=== PATIENT | female | born 1980 | race Hispanic/Latino ===

== ENCOUNTER 2017-08-23 11:34 | Emergency (ER) | payer MEDICAID ==
[~2017-08-23 11:34] MED LIST: INSU500V SQ; NPH,100V SQ; PREN1TAB89 PO
[2017-08-23] MEDS ORDERED: DEXAMETHASONE SOD PHOSPHATE 10MG/ML 1ML VIAL ONE (11:52)
[2017-08-23] MEDS ORDERED: IPRATROPIUM/ALBUTEROL SULFATE 3 ML SOLUTION IH ONE (11:58)
== END 2017-08-23 12:25 | disposition home or self-care (01) ==
LOC: EDH 11:34
DX: J20.9 Acute bronchitis, unspecified (principal); E11.9 Type 2 diabetes mellitus without complications; Z72.0 Tobacco use
CPT/HCPCS: 71046; 94640; 96372; 99284; J1100

== ENCOUNTER 2018-08-28 18:08 | Emergency (ER) | payer MEDICAID ==
[2018-08-28] MEDS ORDERED: ASPIRIN 325 MG TABLET ONE (18:20)
[2018-08-28 18:53] LABS: EOSINOPHILS % (AUTO) 0.6 % (0.0-8.0); HEMATOCRIT 43.2 % (36-48); MEAN CORPUSCULAR HEMOGLOBIN 31.4 pg (27.0-33.0); MEAN CORPUSCULAR HGB CONC 35.1 g/dL (32.0-36.0); MEAN CORPUSCULAR VOLUME 89.6 fL (79-99); MONOCYTES % (AUTO) 5.8 % (3.0-13.0); NEUTROPHILS % (AUTO) 51.6 % (40.0-77.0); NUCLEATED RED BLOOD CELLS 0.1 % (0.0-0.19); PLATELET COUNT (AUTO) 248 K/uL (130-400); RED BLOOD CELL COUNT(AUTO) 4.82 MIL/uL (4.00-5.50); RED CELL DISTRIBUTION WIDTH 13.5 % (11.0-15.5); WHITE BLOOD COUNT (AUTO) 9.6 K/uL (4.8-10.8)
[2018-08-28 18:59] LABS: CREATININE 0.8 mg/dL (0.5-1.5); POTASSIUM 3.8 mmol/L (3.5-5.1)
[2018-08-28 19:03] LABS: ALBUMIN 2.7 g/dL (3.5-5.0); BILIRUBIN,TOTAL 0.3 mg/dL (0.2-1.0); TOTAL PROTEIN, SERUM 6.8 g/dL (6.0-8.3)
[2018-08-28 19:24] LABS: APPEARANCE,URINE Clear (CLEAR); BILIRUBIN,URINE Negative (NEGATIVE); COLOR,URINE Yellow (YELLOW); GLUCOSE, URINE (UA) >=1000 mg/dL (NEGATIVE); KETONES,URINE Negative (NEGATIVE); LEUKOCYTE ESTERASE ,URINE Negative (NEGATIVE); NITRATE,URINE Negative (NEGATIVE); OCCULT BLOOD,URINE Negative (NEGATIVE); PROTEIN,URINE 300 mg/dL (NEGATIVE); UROBILINOGEN,URINE 0.2 mg/dL (0.2-1.0)
[2018-08-28 19:32] LABS: AMPHET/METH SCREEN,URINE NEGATIVE (NEGATIVE); BARBITURATE SCREEN, URINE NEGATIVE (NEGATIVE); BENZODIAZEPINES SCREEN,URINE NEGATIVE (NEGATIVE); CANNABINOID SCREEN,URINE POSITIVE (NEGATIVE); COCAINE SCREEN,URINE POSITIVE (NEGATIVE); OPIATE SCREEN,URINE NEGATIVE (NEGATIVE); PHENCYCLIDINE SCREEN,URINE NEGATIVE (NEGATIVE)
[2018-08-28 19:41] LABS: BACTERIA,URINE None Seen /HPF (None Seen); RBC,URINE 0-1 /HPF (0-1); SQUAMOUS EPITHELIAL CELL,UR 0-2 /HPF (0-2); WBC,URINE 0-1 /HPF (0-1)
[2018-08-28] MEDS ORDERED: KETOROLAC TROMETHAMINE 15MG/ML ONE (20:27)
[2018-08-28] MEDS ORDERED: SODIUM CHLORIDE 0.9% 1000ML 1,000 ML IV ONE (20:28)
[2018-08-28] MEDS ORDERED: LORAZEPAM 2 MG/ML 1 ML VIAL ONE (20:28)
== END 2018-08-28 22:09 | disposition home or self-care (01) ==
LOC: EDH 18:08
DX: E11.65 Type 2 diabetes mellitus with hyperglycemia (principal); R07.89 Other chest pain; F19.90 Other psychoactive substance use, unspecified, uncomplicated; Z90.89 Acquired absence of other organs; Z72.0 Tobacco use
CPT/HCPCS: 36415; 71045; 80053; 80305; 81001; 84484 ×2; 85025; 93005 ×2; 96361; 96374; 96375; 99285; J1885; J2060; J7030

== ENCOUNTER 2018-11-21 01:20 | Emergency (ER) | payer MEDICAID ==
[2018-11-21 03:09] LABS: CREATININE 0.8 mg/dL (0.5-1.5); POTASSIUM 3.9 mmol/L (3.5-5.1)
[2018-11-21] MEDS ORDERED: KETOROLAC TROMETHAMINE 30MG/ML ONE (03:09)
[2018-11-21] MEDS ORDERED: LIDOCAINE HCL 2% JELLY 5 ML ONE (03:09)
[2018-11-21] MEDS ORDERED: CLINDAMYCIN 900 MG/D5% WATER 50 ML IV ONE (03:09)
[2018-11-21 03:14] LABS: ALBUMIN 3.2 g/dL (3.5-5.0); BILIRUBIN,TOTAL 0.2 mg/dL (0.2-1.0); TOTAL PROTEIN, SERUM 7.5 g/dL (6.0-8.3)
[2018-11-21 03:17] LABS: BASOPHILS % (AUTO) 0.9 % (0.0-5.0); EOSINOPHILS % (AUTO) 0.8 % (0.0-8.0); HEMATOCRIT 46.5 % (36-48); LYMPHOCYTES % (AUTO) 40.2 % (21.0-51.0); MEAN CORPUSCULAR HEMOGLOBIN 31.3 pg (27.0-33.0); MEAN CORPUSCULAR HGB CONC 34.6 g/dL (32.0-36.0); MEAN CORPUSCULAR VOLUME 90.3 fL (79-99); MONOCYTES % (AUTO) 4.3 % (3.0-13.0); NEUTROPHILS % (AUTO) 53.8 % (40.0-77.0); NUCLEATED RED BLOOD CELLS 0.1 % (0.0-0.19); PLATELET COUNT (AUTO) 261 K/uL (130-400); RED BLOOD CELL COUNT(AUTO) 5.15 MIL/uL (4.00-5.50); RED CELL DISTRIBUTION WIDTH 13.1 % (11.0-15.5); WHITE BLOOD COUNT (AUTO) 10.8 K/uL (4.8-10.8)
== END 2018-11-21 04:42 | disposition home or self-care (01) ==
LOC: EDH 01:20
DX: K04.7 Periapical abscess without sinus (principal); E11.65 Type 2 diabetes mellitus with hyperglycemia; Z72.0 Tobacco use
CPT/HCPCS: 36415; 80053; 85025; 96361; 96365; 96374; 99284; J1885; J3490

== ENCOUNTER 2019-10-07 13:06 | Emergency (ER) | payer MEDICAID ==
[2019-10-07] MEDS ORDERED: ASPIRIN 325 MG TABLET ONE (13:34)
== END 2019-10-07 15:15 | disposition home or self-care (01) ==
LOC: EDH 13:06
DX: M94.0 Chondrocostal junction syndrome [Tietze] (principal); E11.9 Type 2 diabetes mellitus without complications; Z90.49 Acquired absence of other specified parts of digestive tract; Z90.710 Acquired absence of both cervix and uterus; Z72.0 Tobacco use

== ENCOUNTER 2020-09-06 22:43 | Emergency (ER) | payer MEDICAID ==
[~2020-09-06] VITALS: Ht 165.1 cm; Wt 93.0 kg
[2020-09-06 23:16] VITALS: BP 144/87
[2020-09-07] MEDS ORDERED: TETANUS/DIPHTHERIA TOXOID [ADULT] 0.5 ML VIAL IM SCH
[2020-09-07] MEDS ORDERED: PHARMACY COMMUNICATION MISC SCH
[2020-09-07] MEDS ORDERED: CLINDAMYCIN 900 MG/D5% WATER 50 ML IV SCH
[2020-09-07] MEDS ORDERED: KETOROLAC 30MG VIAL (30MG/ML) IVP SCH
[2020-09-07 00:10] LABS: BASOPHILS % (AUTO) 0.3 % (0.0-5.0); EOSINOPHILS % (AUTO) 0.3 % (0.0-8.0); HEMATOCRIT 48.2 % (36-48); LYMPHOCYTES % (AUTO) 31.4 % (21.0-51.0); MEAN CORPUSCULAR HEMOGLOBIN 30.4 pg (27.0-33.0); MEAN CORPUSCULAR HGB CONC 34.2 g/dL (32.0-36.0); MEAN CORPUSCULAR VOLUME 88.8 fL (79-99); MONOCYTES % (AUTO) 5.3 % (3.0-13.0); NEUTROPHILS % (AUTO) 62.3 % (40.0-77.0); PLATELET COUNT (AUTO) 264 K/uL (130-400); RED BLOOD CELL COUNT(AUTO) 5.43 MIL/uL (4.00-5.50); RED CELL DISTRIBUTION WIDTH 12.6 % (11.0-15.5); WHITE BLOOD COUNT (AUTO) 13.6 K/uL (4.8-10.8)
[2020-09-07 00:17] LABS: CREATININE 0.9 mg/dL (0.5-1.5)
[2020-09-07 00:22] LABS: ALBUMIN 2.7 g/dL (3.5-5.0); BILIRUBIN,TOTAL 0.3 mg/dL (0.2-1.0); TOTAL PROTEIN, SERUM 7.6 g/dL (6.0-8.3)
[2020-09-07] MEDS ORDERED: INSULIN HUMULIN R 100 UNIT/ML 3ML IV SCH (00:45)
[2020-09-07] MEDS ORDERED: SODIUM CHLORIDE 0.9% 1000ML 1,000 ML IV SCH ×2 (00:45)
[2020-09-07] MEDS ORDERED: CLIN300C10 PO (00:49)
== END 2020-09-07 02:45 | disposition home or self-care (01) ==
LOC: EDH 22:43
DX: L03.113 Cellulitis of right upper limb (principal); E11.65 Type 2 diabetes mellitus with hyperglycemia; E86.0 Dehydration; Z79.4 Long term (current) use of insulin; Z79.1 Long term (current) use of non-steroidal anti-inflammatories (NSAID); Z72.0 Tobacco use
CPT/HCPCS: 36415; 80053; 85025; 90471; 90714; 96361 ×2; 96374; 96375; 99284; J1815; J1885; J7030 ×2

== ENCOUNTER 2020-11-08 03:35 | Observation (INO) | payer MEDICAID ==
[~2020-11-08] VITALS: Ht 165.1 cm; Wt 98.9 kg
[2020-11-08] VITALS (9 sets, daily range): BP systolic 130–166; BP diastolic 78–107
[~2020-11-08 03:35] MED LIST changes: +CLIN300C10 PO
[2020-11-08 04:12] LABS: APPEARANCE,URINE Clear (CLEAR); BILIRUBIN,URINE Negative (NEGATIVE); COLOR,URINE Yellow (YELLOW); GLUCOSE, URINE (UA) >=1000 mg/dL (NEGATIVE); KETONES,URINE Negative (NEGATIVE); LEUKOCYTE ESTERASE ,URINE Negative (NEGATIVE); NITRATE,URINE Negative (NEGATIVE); OCCULT BLOOD,URINE Negative (NEGATIVE); PH,URINE 6.5 (5.0-8.0); PROTEIN,URINE 300 mg/dL (NEGATIVE); UROBILINOGEN,URINE 0.2 mg/dL (0.2-1.0)
[2020-11-08 04:24] LABS: BASOPHILS % (AUTO) 0.4 % (0.0-5.0); EOSINOPHILS % (AUTO) 0.7 % (0.0-8.0); HEMATOCRIT 44.3 % (36-48); LYMPHOCYTES % (AUTO) 36.9 % (21.0-51.0); MEAN CORPUSCULAR HEMOGLOBIN 30.3 pg (27.0-33.0); MEAN CORPUSCULAR HGB CONC 34.3 g/dL (32.0-36.0); MEAN CORPUSCULAR VOLUME 88.2 fL (79-99); MONOCYTES % (AUTO) 6.3 % (3.0-13.0); NEUTROPHILS % (AUTO) 55.3 % (40.0-77.0); PLATELET COUNT (AUTO) 236 K/uL (130-400); RED BLOOD CELL COUNT(AUTO) 5.02 MIL/uL (4.00-5.50); RED CELL DISTRIBUTION WIDTH 12.8 % (11.0-15.5); WHITE BLOOD COUNT (AUTO) 13.1 K/uL (4.8-10.8)
[2020-11-08 04:29] LABS: ALBUMIN 2.6 g/dL (3.5-5.0); BILIRUBIN,TOTAL 0.2 mg/dL (0.2-1.0); CREATININE 0.9 mg/dL (0.5-1.5); TOTAL PROTEIN, SERUM 6.9 g/dL (6.0-8.3)
[2020-11-08 04:41] LABS: BACTERIA,URINE None Seen /HPF (None Seen); RBC,URINE 0-1 /HPF (0-1); SQUAMOUS EPITHELIAL CELL,UR Few /HPF (0-2); WBC,URINE None Seen /HPF (0-1)
[2020-11-08 04:43] LABS: B-TYPE NATRIURETIC PEPTIDE 17 pg/mL (0-100)
[2020-11-08 04:45] LABS: INR 0.91 (0.85-1.15)
[2020-11-08 04:46] LABS: PARTIAL THROMBOPLASTIN TIME 24.2 SEC (26.3-35.5)
[2020-11-08] MEDS ORDERED: ASPIRIN 325MG EC TAB PO ONE (06:00)
[2020-11-08] MEDS ORDERED: KETOROLAC 30MG VIAL (30MG/ML) ONE (06:25)
[2020-11-08] MEDS ORDERED: KETOROLAC 30MG VIAL (30MG/ML) IV ONE (06:30)
[2020-11-08] MEDS ORDERED: GABA600T10 PO (06:55)
[2020-11-08] MEDS ORDERED: METH-662 PO (06:55)
[2020-11-08] MEDS ORDERED: ORPHENADRINE CITRATE 30 MG/ML ML IV ONE (07:00)
[2020-11-08] MEDS ORDERED: GABAPENTIN 300 MG CAPSULE PO SCH (07:00)
[2020-11-08 14:04] LABS: PROTEIN,URINE RANDOM 179.2 mg/dL (0-11.9)
[2020-11-08 14:07] LABS: AMPHET/METH SCREEN,URINE NEGATIVE (NEGATIVE); BARBITURATE SCREEN, URINE NEGATIVE (NEGATIVE); BENZODIAZEPINES SCREEN,URINE NEGATIVE (NEGATIVE); CANNABINOID SCREEN,URINE POSITIVE (NEGATIVE); COCAINE SCREEN,URINE POSITIVE (NEGATIVE); OPIATE SCREEN,URINE NEGATIVE (NEGATIVE); PHENCYCLIDINE SCREEN,URINE NEGATIVE (NEGATIVE)
[2020-11-08 14:26] LABS: HEMOGLOBIN A1C 13.1 % (4.0-6.0)
[2020-11-08 16:11] LABS: CREATINE KINASE, TOTAL 54 U/L (21-232); MYOGLOBIN 77 ng/mL (10-92); TROPONIN I < 0.04 ng/mL (0.00-0.06)
[2020-11-08] MEDS ORDERED: ACETAMINOPHEN 325 MG TAB PO PRN ×2 (17:30)
[2020-11-08] MEDS ORDERED: LACTULOSE 20 GM/30 ML UDCUP PO PRN (17:30)
[2020-11-08] MEDS ORDERED: ONDANSETRON 4MG INJ IV PRN (17:30)
[2020-11-08] MEDS ORDERED: 0.9%NACL 1000ML 1,000 ML IV SCH (17:30)
[2020-11-08] MEDS ORDERED: NITROGLYCERIN 0.4 MG SL TAB SL PRN (17:30)
[2020-11-08] MEDS ORDERED: METOPROLOL TARTRATE 25 MG TAB PO SCH (21:00)
[2020-11-08] MEDS ORDERED: INSULIN LISPRO 100 UNIT/ML 3ML SQ SCH (21:00)
[2020-11-08] MEDS ORDERED: INSULIN GLARGINE 100 UNITS/ML 10 ML VIAL SQ SCH (21:00)
[2020-11-08] MEDS ORDERED: FAMOTIDINE 20MG VIAL IV SCH (21:00)
[2020-11-09] MEDS ORDERED: INSULIN LISPRO 100 UNIT/ML 3ML SQ SCH (07:30)
[2020-11-09] MEDS ORDERED: ENOXAPARIN SODIUM 40 MG/0.4 ML SYRINGE SQ SCH (09:00)
== END 2020-11-08 20:16 | disposition left against medical advice (07) ==
LOC: EDH 03:35 → EDHIP 03:36
PROVIDERS: ADMIT Internal Medicine; ATTEND Internal Medicine
DX: M54.12 Radiculopathy, cervical region (principal); M62.830 Muscle spasm of back; R07.89 Other chest pain; F41.9 Anxiety disorder, unspecified; E11.65 Type 2 diabetes mellitus with hyperglycemia; E66.9 Obesity, unspecified; F17.210 Nicotine dependence, cigarettes, uncomplicated; Z79.4 Long term (current) use of insulin; Z90.710 Acquired absence of both cervix and uterus; Z90.49 Acquired absence of other specified parts of digestive tract; Z98.891 History of uterine scar from previous surgery; Z68.36 Body mass index [BMI] 36.0-36.9, adult; Z79.899 Other long term (current) drug therapy
CPT/HCPCS: 36415; 71045; 72125; 74018; 80053; 80305; 81001; 82550 ×2; 82570; 83036; 83874; 83880; 84156; 84484 ×3; 85025; 85378; 85610; 85730; 93005 ×2; 96361; 96374; 96375; 99285; G0378 ×3; J1885; J2360

== ENCOUNTER 2020-12-02 15:17 | Emergency (ER) | payer MEDICAID ==
[~2020-12-02] VITALS: Ht 165.1 cm; Wt 98.9 kg
[~2020-12-02 15:17] MED LIST changes: +AEC81 PO; -CLIN300C10 PO; +FAMO20TA8 PO; +GABA600T10 PO; +INSU100I35 SQ; +METH-662 PO
[2020-12-02 16:00] LABS: APPEARANCE,URINE Cloudy (CLEAR); BILIRUBIN,URINE Negative (NEGATIVE); COLOR,URINE Yellow (YELLOW); GLUCOSE, URINE (UA) >=1000 mg/dL (NEGATIVE); KETONES,URINE Trace mg/dL (NEGATIVE); LEUKOCYTE ESTERASE ,URINE Negative (NEGATIVE); NITRATE,URINE Positive (NEGATIVE); OCCULT BLOOD,URINE Trace (NEGATIVE); PROTEIN,URINE 300 mg/dL (NEGATIVE)
[2020-12-02 16:10] LABS: BACTERIA,URINE Few /HPF (None Seen); SQUAMOUS EPITHELIAL CELL,UR Few /HPF (0-2)
[2020-12-02] MEDS ORDERED: LIDOCAINE HCL-MPF 1% 2ML VIAL ONE (16:19)
[2020-12-02] MEDS ORDERED: CEFTRIAXONE 1G VIAL IM ONE (16:30)
[2020-12-02] MEDS ORDERED: KETOROLAC 30MG VIAL (30MG/ML) IM ONE (16:30)
[2020-12-02 17:02] VITALS: BP 92/66
[2020-12-02] MEDS ORDERED: IBUP-2070 PO (17:19)
[2020-12-02] MEDS ORDERED: CEPH500B PO (17:19)
[2020-12-02 17:52] VITALS: BP 97/55
== END 2020-12-02 17:59 | disposition home or self-care (01) ==
LOC: EDH 15:17
DX: N39.0 Urinary tract infection, site not specified (principal); E11.9 Type 2 diabetes mellitus without complications; I10 Essential (primary) hypertension; E78.00 Pure hypercholesterolemia, unspecified; Z90.49 Acquired absence of other specified parts of digestive tract; Z90.710 Acquired absence of both cervix and uterus
CPT/HCPCS: 81001; 87077; 87088; 87186; 96372 ×2; 99284; J0696; J1885; J3490

== ENCOUNTER 2021-04-10 18:26 | Emergency (ER) | payer MEDICAID ==
[~2021-04-10] VITALS: Ht 165.1 cm; Wt 95.3 kg
[~2021-04-10 18:26] MED LIST changes: +CEPH500B PO; +IBUP-2070 PO
[2021-04-10 20:43] LABS: BASOPHILS % (AUTO) 0.3 % (0.0-5.0); EOSINOPHILS % (AUTO) 0.6 % (0.0-8.0); HEMATOCRIT 46.2 % (36-48); LYMPHOCYTES % (AUTO) 35.3 % (21.0-51.0); MEAN CORPUSCULAR HEMOGLOBIN 29.2 pg (27.0-33.0); MEAN CORPUSCULAR HGB CONC 33.5 g/dL (32.0-36.0); MEAN CORPUSCULAR VOLUME 87.2 fL (79-99); MONOCYTES % (AUTO) 6.7 % (3.0-13.0); NEUTROPHILS % (AUTO) 56.7 % (40.0-77.0); PLATELET COUNT (AUTO) 263 K/uL (130-400); RED CELL DISTRIBUTION WIDTH 13.2 % (11.0-15.5); WHITE BLOOD COUNT (AUTO) 13.6 K/uL (4.8-10.8)
[2021-04-10 20:51] LABS: CARBON DIOXIDE 27 mmol/L (21-32); CHLORIDE 102 mmol/L (101-111); CREATININE 0.9 mg/dL (0.5-1.5); GLOMERULAR FILTR. RATE CALC 74 mL/min (>60); GLUCOSE,RANDOM 192 mg/dL (70-105); POTASSIUM 3.8 mmol/L (3.5-5.1); SODIUM SERUM 135 mmol/L (136-145); UREA NITROGEN, BLOOD 13 mg/dL (7-18)
[2021-04-10 20:56] LABS: ALANINE AMINOTRANSFERASE 27 U/L (12-78); ASPARTATE AMINOTRANSFERASE 13 U/L (10-37); BILIRUBIN,TOTAL 0.2 mg/dL (0.2-1.0); CREATINE KINASE, TOTAL 58 U/L (21-232); TOTAL PROTEIN, SERUM 7.5 g/dL (6.0-8.3)
[2021-04-10 20:57] LABS: LIPASE < 50 U/L (114-286)
[2021-04-10 21:21] LABS: B-TYPE NATRIURETIC PEPTIDE 10 pg/mL (0-100)
[2021-04-10] MEDS ORDERED: MAGNESIUM OXIDE 400 MG TABLET PO SCH (22:00)
[2021-04-10 22:15] VITALS: BP 112/72
== END 2021-04-10 22:36 | disposition home or self-care (01) ==
LOC: EDH 18:26
DX: R07.89 Other chest pain (principal); J06.9 Acute upper respiratory infection, unspecified; E83.42 Hypomagnesemia; E11.65 Type 2 diabetes mellitus with hyperglycemia; Z20.822 Contact with and (suspected) exposure to COVID-19; F17.200 Nicotine dependence, unspecified, uncomplicated; Z79.1 Long term (current) use of non-steroidal anti-inflammatories (NSAID); Z79.4 Long term (current) use of insulin; Z79.82 Long term (current) use of aspirin; Z79.899 Other long term (current) drug therapy; Z90.49 Acquired absence of other specified parts of digestive tract; Z95.5 Presence of coronary angioplasty implant and graft
CPT/HCPCS: 36415; 71045; 80053; 82550; 83690; 83735; 83880; 84484; 85025; 85378; 87635; 87804 ×2; 93005; 99285; C9803

== ENCOUNTER 2022-02-02 23:56 | Emergency (ER) | payer MEDICAID ==
[~2022-02-02] VITALS: Ht 165.1 cm; Wt 90.7 kg
[2022-02-02 23:57] VITALS: BP 113/72
[2022-02-03] MEDS ORDERED: IBUP-1493 PO (02:05)
[2022-02-03] MEDS ORDERED: OSEL75 PO (02:05)
== END 2022-02-03 02:31 | disposition home or self-care (01) ==
LOC: EDH 23:56
DX: J10.1 Influenza due to other identified influenza virus with other respiratory manifestations (principal); Z20.822 Contact with and (suspected) exposure to COVID-19; I25.10 Atherosclerotic heart disease of native coronary artery without angina pectoris; E11.9 Type 2 diabetes mellitus without complications; I25.2 Old myocardial infarction; Z98.890 Other specified postprocedural states; Z79.82 Long term (current) use of aspirin; Z79.899 Other long term (current) drug therapy; Z79.4 Long term (current) use of insulin
CPT/HCPCS: 99283; 87635; 87880; 87804 ×2; C9803

== ENCOUNTER 2022-03-20 01:00 | Emergency (ER) | payer MEDICAID ==
[~2022-03-20] VITALS: Ht 165.1 cm; Wt 91.2 kg
[~2022-03-20 01:00] MED LIST changes: +IBUP-1493 PO; +OSEL75 PO
[2022-03-20 01:39] LABS: BASOPHILS % (AUTO) 0.4 % (0.0-5.0); EOSINOPHILS % (AUTO) 0.9 % (0.0-8.0); HEMATOCRIT 49.4 % (36-48); LYMPHOCYTES % (AUTO) 35.9 % (21.0-51.0); MEAN CORPUSCULAR HEMOGLOBIN 29.9 pg (27.0-33.0); MEAN CORPUSCULAR HGB CONC 33.4 g/dL (32.0-36.0); MEAN CORPUSCULAR VOLUME 89.7 fL (79-99); MONOCYTES % (AUTO) 6.4 % (3.0-13.0); NEUTROPHILS % (AUTO) 56.2 % (40.0-77.0); PLATELET COUNT (AUTO) 280 K/uL (130-400); RED BLOOD CELL COUNT(AUTO) 5.51 MIL/uL (4.00-5.50); RED CELL DISTRIBUTION WIDTH 12.9 % (11.0-15.5); WHITE BLOOD COUNT (AUTO) 11.4 K/uL (4.8-10.8)
[2022-03-20 01:49] LABS: CREATININE 0.9 mg/dL (0.5-1.5); POTASSIUM 3.5 mmol/L (3.5-5.1)
[2022-03-20 01:54] LABS: ALBUMIN 3.6 g/dL (3.5-5.0); MAGNESIUM 1.9 mg/dL (1.80-2.40); TOTAL PROTEIN, SERUM 8.8 g/dL (6.0-8.3)
[2022-03-20 04:00] VITALS: BP 118/78
== END 2022-03-20 04:53 | disposition left against medical advice (07) ==
LOC: EDH 01:00
DX: R07.89 Other chest pain (principal); I25.10 Atherosclerotic heart disease of native coronary artery without angina pectoris; F17.210 Nicotine dependence, cigarettes, uncomplicated; E11.9 Type 2 diabetes mellitus without complications; I51.9 Heart disease, unspecified; E78.00 Pure hypercholesterolemia, unspecified; Z90.49 Acquired absence of other specified parts of digestive tract; Z98.890 Other specified postprocedural states; Z79.899 Other long term (current) drug therapy; Z79.82 Long term (current) use of aspirin
CPT/HCPCS: 36415; 71045; 80053; 83735; 84484; 84703; 85025; 93005

== ENCOUNTER 2022-06-18 06:33 | Emergency (ER) | payer MEDICAID ==
[~2022-06-18] VITALS: Ht 167.6 cm; Wt 93.0 kg
[2022-06-18] MEDS ORDERED: ALBUTEROL 0.042% 1.25MG/3ML IH ONE ×2 (07:00→07:01)
[2022-06-18] MEDS ORDERED: ALBUTEROL 0.083% 2.5 MG/3 ML INH IH ONE (07:00)
[2022-06-18] MEDS ORDERED: IPRATROPIUM 0.5 MG/2.5 ML INH IH ONE ×2 (07:00)
[2022-06-18 07:26] LABS: BASOPHILS % (AUTO) 0.4 % (0.0-5.0); EOSINOPHILS % (AUTO) 1.1 % (0.0-8.0); HEMATOCRIT 42.1 % (36-48); LYMPHOCYTES % (AUTO) 26.9 % (21.0-51.0); MEAN CORPUSCULAR HEMOGLOBIN 30.1 pg (27.0-33.0); MEAN CORPUSCULAR HGB CONC 34.2 g/dL (32.0-36.0); MEAN CORPUSCULAR VOLUME 87.9 fL (79-99); NEUTROPHILS % (AUTO) 65.2 % (40.0-77.0); PLATELET COUNT (AUTO) 274 K/uL (130-400); RED BLOOD CELL COUNT(AUTO) 4.79 MIL/uL (4.00-5.50); RED CELL DISTRIBUTION WIDTH 13.2 % (11.0-15.5); WHITE BLOOD COUNT (AUTO) 14.3 K/uL (4.8-10.8)
[2022-06-18 07:48] LABS: ALBUMIN 3.1 g/dL (3.5-5.0); POTASSIUM 3.5 mmol/L (3.5-5.1)
[2022-06-18 07:51] LABS: TOTAL PROTEIN, SERUM 7.4 g/dL (6.0-8.3)
[2022-06-18] MEDS ORDERED: DOXYCYCLINE HYCLATE 100 MG TABLET PO SCH (08:00)
[2022-06-18] MEDS ORDERED: 0.9%NACL 1000ML 1,000 ML IV ONE ×2 (08:00→08:04)
[2022-06-18] MEDS ORDERED: SOLU-MEDROL 125MG VIAL IVP ONE (08:00)
[2022-06-18] MEDS ORDERED: SOLU-MEDROL 125MG VIAL ONE (08:04)
[2022-06-18] MEDS ORDERED: DOXYCYCLINE HYCLATE 100 MG TABLET PO ONE (08:04)
[2022-06-18 08:05] LABS: APPEARANCE,URINE CLEAR (CLEAR); BILIRUBIN,URINE NEGATIVE (NEGATIVE); COLOR,URINE COLORLESS (YELLOW); GLUCOSE, URINE (UA) >=1000 mg/dL (NEGATIVE); KETONES,URINE NEGATIVE (NEGATIVE); LEUKOCYTE ESTERASE ,URINE NEGATIVE Leu/uL (NEGATIVE); NITRATE,URINE NEGATIVE (NEGATIVE); OCCULT BLOOD,URINE NEGATIVE (NEGATIVE); PROTEIN,URINE NEGATIVE (NEGATIVE); UROBILINOGEN,URINE 0.2 mg/dL (0.2-1.0)
[2022-06-18 08:12] LABS: RBC,URINE 0-1 /HPF (0-1); SQUAMOUS EPITHELIAL CELL,UR RARE /HPF (0-2); WBC,URINE 0-1 /HPF (0-1)
[2022-06-18] MEDS ORDERED: INSULIN HUMULIN R 100 UNIT/ML 3ML SQ ONE (08:30)
[2022-06-18] MEDS ORDERED: INSULIN HUMULIN R 100 UNIT/ML 3ML ONE (08:53)
[2022-06-18] MEDS ORDERED: D-ME118S47 PO (09:35)
[2022-06-18] MEDS ORDERED: DOXY-469 PO (09:35)
[2022-06-18 10:06] VITALS: BP 113/58
== END 2022-06-18 10:08 | disposition home or self-care (01) ==
LOC: EDH 06:33
DX: J40 Bronchitis, not specified as acute or chronic (principal); E11.65 Type 2 diabetes mellitus with hyperglycemia; E86.0 Dehydration; I10 Essential (primary) hypertension; F17.200 Nicotine dependence, unspecified, uncomplicated; I25.10 Atherosclerotic heart disease of native coronary artery without angina pectoris; Z79.1 Long term (current) use of non-steroidal anti-inflammatories (NSAID); Z79.4 Long term (current) use of insulin; Z79.52 Long term (current) use of systemic steroids; Z79.82 Long term (current) use of aspirin; Z90.49 Acquired absence of other specified parts of digestive tract; Z95.5 Presence of coronary angioplasty implant and graft; Z20.822 Contact with and (suspected) exposure to COVID-19
CPT/HCPCS: 99285; 96374; 71045; 96361; 87635; 80053; 85025; 87804 ×2; 82948; 81001; 36415; 96372; 93005; 94640; J1815; C9803; J7030; J2930

== ENCOUNTER 2022-07-29 05:48 | Observation (INO) | payer MEDICAID ==
[~2022-07-29] VITALS: Ht 167.6 cm; Wt 92.4 kg
[~2022-07-29 05:48] MED LIST changes: +D-ME118S47 PO; +DOXY-469 PO
[2022-07-29] MEDS ORDERED: NITROGLYCERIN 0.4 MG SL TAB SL PRN (06:00)
[2022-07-29] MEDS ORDERED: ASPIRIN 325MG TAB PO ONE (06:00)
[2022-07-29] MEDS ORDERED: ASPIRIN 325MG TAB ONE (06:03)
[2022-07-29] MEDS ORDERED: NITROGLYCERIN 0.4 MG SL TAB SL ONE (06:03)
[2022-07-29 06:23] LABS: BASOPHILS % (AUTO) 0.3 % (0.0-5.0); EOSINOPHILS % (AUTO) 0.7 % (0.0-8.0); HEMATOCRIT 45.3 % (36-48); LYMPHOCYTES % (AUTO) 40.4 % (21.0-51.0); MEAN CORPUSCULAR VOLUME 88.3 fL (79-99); MONOCYTES % (AUTO) 5.6 % (3.0-13.0); NEUTROPHILS % (AUTO) 52.8 % (40.0-77.0); PLATELET COUNT (AUTO) 258 K/uL (130-400); RED BLOOD CELL COUNT(AUTO) 5.13 MIL/uL (4.00-5.50); WHITE BLOOD COUNT (AUTO) 13.2 K/uL (4.8-10.8)
[2022-07-29 06:33] LABS: ALBUMIN 3.1 g/dL (3.5-5.0); MAGNESIUM 1.7 mg/dL (1.80-2.40); POTASSIUM 3.7 mmol/L (3.5-5.1); TOTAL PROTEIN, SERUM 7.5 g/dL (6.0-8.3)
[2022-07-29 07:20] LABS: AMPHET/METH SCREEN,URINE NEGATIVE (NEGATIVE); BARBITURATE SCREEN, URINE NEGATIVE (NEGATIVE); BENZODIAZEPINES SCREEN,URINE NEGATIVE (NEGATIVE); CANNABINOID SCREEN,URINE NEGATIVE (NEGATIVE); COCAINE SCREEN,URINE NEGATIVE (NEGATIVE); OPIATE SCREEN,URINE NEGATIVE (NEGATIVE); PHENCYCLIDINE SCREEN,URINE NEGATIVE (NEGATIVE)
[2022-07-29 07:30] LABS: APPEARANCE,URINE CLEAR (CLEAR); BILIRUBIN,URINE NEGATIVE (NEGATIVE); COLOR,URINE COLORLESS (YELLOW); GLUCOSE, URINE (UA) >=1000 mg/dL (NEGATIVE); KETONES,URINE NEGATIVE (NEGATIVE); LEUKOCYTE ESTERASE ,URINE NEGATIVE Leu/uL (NEGATIVE); NITRATE,URINE NEGATIVE (NEGATIVE); OCCULT BLOOD,URINE NEGATIVE (NEGATIVE); PROTEIN,URINE 20 mg/dL (NEGATIVE); UROBILINOGEN,URINE 0.2 mg/dL (0.2-1.0)
[2022-07-29 07:31] LABS: SQUAMOUS EPITHELIAL CELL,UR RARE /HPF (0-2)
[2022-07-29] MEDS ORDERED: KETOROLAC 15MG/ML VIAL (15MG/ML) ONE (07:55)
[2022-07-29] MEDS: KETOROLAC 15MG/ML VIAL (15MG/ML) IV SCH ×2 (08:06→09:35)
[2022-07-29] MEDS: MAGNESIUM 2GM PREMIX 50ML 50 ML IV SCH (08:41)
[2022-07-29] MEDS ORDERED: CEFTRIAXONE 1G VIAL IV SCH (11:00)
[2022-07-29] MEDS ORDERED: DIPHENHYDRAMINE HCL 25 MG CAPSULE PO PRN (11:00)
[2022-07-29] MEDS ORDERED: ONDANSETRON 4MG INJ IV PRN (11:00)
[2022-07-29] MEDS ORDERED: ACETAMINOPHEN 325 MG TAB PO PRN ×2 (11:00)
[2022-07-29] MEDS ORDERED: MAGNESIUM 2GM PREMIX 50ML 50 ML IV PRN (11:00)
[2022-07-29] MEDS ORDERED: DiphenhydrAMINE HCL 50 MG/ML VIAL IV PRN (11:00)
[2022-07-29] MEDS: INSULIN HUMULIN R 100 UNIT/ML 3ML SQ SCH ×5 (11:30→21:42)
[2022-07-29 11:34] LABS: INR 0.93 (0.85-1.15); PROTHROMBIN TIME 9.7 SEC (9.6-11.6)
[2022-07-29 11:35] LABS: PARTIAL THROMBOPLASTIN TIME 25.8 SEC (26.3-35.5)
[2022-07-29] MEDS ORDERED: HEPARIN 5,000 UNIT VIAL ONE (11:53)
[2022-07-29] MEDS: HEPARIN 5,000 UNIT VIAL SQ SCH ×2 (11:55→21:41)
[2022-07-29 11:56] LABS: HEMOGLOBIN A1C 13.7 % (4.0-6.0)
[2022-07-29] MEDS ORDERED: PRAS10TA9 PO (14:38)
[2022-07-29] MEDS ORDERED: EMPA25TA PO (14:38)
[2022-07-29] MEDS ORDERED: LISI5TAB21 PO (14:38)
[2022-07-29] MEDS ORDERED: METO25TA6 PO (14:39)
[2022-07-29] MEDS ORDERED: ATOR-2 PO (14:40)
[2022-07-29] MEDS ORDERED: INSU200I SQ (14:42)
[2022-07-29 14:43] VITALS: BP 115/70
[2022-07-29] MEDS ORDERED: INSU3INS3 SQ (14:43)
[2022-07-29 16:22] VITALS: BP 114/69
[2022-07-29 20:10] VITALS: BP 103/51
[2022-07-29] MEDS: FAMOTIDINE 20MG TAB PO SCH (20:38)
[2022-07-29 23:39] VITALS: BP 115/75
[2022-07-30 03:57] VITALS: BP 94/60
[2022-07-30 04:40] LABS: BASOPHILS % (AUTO) 0.3 % (0.0-5.0); EOSINOPHILS % (AUTO) 0.7 % (0.0-8.0); HEMATOCRIT 41.3 % (36-48); LYMPHOCYTES % (AUTO) 42.7 % (21.0-51.0); MEAN CORPUSCULAR HEMOGLOBIN 30.1 pg (27.0-33.0); MEAN CORPUSCULAR HGB CONC 33.2 g/dL (32.0-36.0); MEAN CORPUSCULAR VOLUME 90.8 fL (79-99); MONOCYTES % (AUTO) 5.7 % (3.0-13.0); NEUTROPHILS % (AUTO) 50.2 % (40.0-77.0); PLATELET COUNT (AUTO) 226 K/uL (130-400); RED BLOOD CELL COUNT(AUTO) 4.55 MIL/uL (4.00-5.50); RED CELL DISTRIBUTION WIDTH 13.1 % (11.0-15.5); WHITE BLOOD COUNT (AUTO) 12.3 K/uL (4.8-10.8)
[2022-07-30 04:48] LABS: CREATININE 0.8 mg/dL (0.5-1.5); MAGNESIUM 1.7 mg/dL (1.80-2.40); POTASSIUM 4.2 mmol/L (3.5-5.1)
[2022-07-30] MEDS: MAGNESIUM 2GM PREMIX 50ML 50 ML IV SCH (06:08)
[2022-07-30] MEDS: INSULIN HUMULIN R 100 UNIT/ML 3ML SQ SCH ×2 (06:39→06:40)
[2022-07-30 08:11] VITALS: BP 109/66
[2022-07-30] MEDS: FAMOTIDINE 20MG TAB PO SCH (08:21)
[2022-07-30] MEDS: HEPARIN 5,000 UNIT VIAL SQ SCH (08:21)
[2022-07-30] MEDS ORDERED: AMOX1TAB16 PO (08:54)
[2022-07-30] MEDS ORDERED: PRASUGREL HCL 10 MG TABLET PO SCH (09:00)
[2022-07-30] MEDS ORDERED: ASPIRIN 81 MG EC TAB PO SCH (09:00)
[2022-07-30] MEDS ORDERED: ATORVASTATIN 40 MG TABLET PO SCH (21:00)
== END 2022-07-30 10:29 | disposition home or self-care (01) ==
LOC: EDH 05:48 → EDHIP 05:49 → INTOOBSV 05:49 → 2DH 14:05
PROVIDERS: ADMIT Hospitalist; ATTEND Hospitalist
DX: I25.110 Atherosclerotic heart disease of native coronary artery with unstable angina pectoris (principal); E11.9 Type 2 diabetes mellitus without complications; I10 Essential (primary) hypertension; E78.5 Hyperlipidemia, unspecified; E66.9 Obesity, unspecified; F41.9 Anxiety disorder, unspecified; I25.2 Old myocardial infarction; K59.00 Constipation, unspecified; F14.90 Cocaine use, unspecified, uncomplicated; F17.210 Nicotine dependence, cigarettes, uncomplicated; G47.00 Insomnia, unspecified; Z68.32 Body mass index [BMI] 32.0-32.9, adult; Z87.440 Personal history of urinary (tract) infections; Z91.199 Patient's noncompliance with other medical treatment and regimen due to unspecified reason; Z79.4 Long term (current) use of insulin; Z95.1 Presence of aortocoronary bypass graft; Z95.5 Presence of coronary angioplasty implant and graft; Z79.82 Long term (current) use of aspirin; Z79.899 Other long term (current) drug therapy; Z98.890 Other specified postprocedural states
CPT/HCPCS: 99285; 96365; 71045; 96375; 96366 ×2; 83036; 83735 ×2; 84484 ×3; 80053; 83880; 80305; 85025 ×2; 85378; 85610; 85730; 87077; 87088; 87186; 82948 ×3; 36415 ×2; 93005 ×2; 81001; 96372 ×2; 80048; J1815 ×3; J3475 ×2; J0696; J1644 ×3; J1885; G0378

== ENCOUNTER 2022-10-23 03:21 | Emergency (ER) | payer MEDICAID ==
[~2022-10-23] VITALS: Ht 167.6 cm; Wt 89.4 kg
[~2022-10-23 03:21] MED LIST changes: +AMOX1TAB16 PO; +ATOR-2 PO; -CEPH500B PO; +CYCL5TAB PO; -D-ME118S47 PO; -DOXY-469 PO; +EMPA25TA PO; -GABA600T10 PO; -IBUP-1493 PO; -IBUP-2070 PO; -INSU100I35 SQ; +INSU200I SQ; +INSU3INS3 SQ; -INSU500V SQ; +LISI5TAB21 PO; -METH-662 PO; +METO25TA6 PO; -NPH,100V SQ; -OSEL75 PO; +PRAS10TA9 PO; -PREN1TAB89 PO
[2022-10-23] MEDS ORDERED: PANTOPRAZOLE 40 MG/VIAL ONE (03:55)
[2022-10-23 04:00] LABS: BASOPHILS % (AUTO) 0.3 % (0.0-5.0); EOSINOPHILS % (AUTO) 0.3 % (0.0-8.0); HEMATOCRIT 44.8 % (36-48); LYMPHOCYTES % (AUTO) 28.1 % (21.0-51.0); MEAN CORPUSCULAR HEMOGLOBIN 29.9 pg (27.0-33.0); MEAN CORPUSCULAR HGB CONC 33.7 g/dL (32.0-36.0); MEAN CORPUSCULAR VOLUME 88.7 fL (79-99); MONOCYTES % (AUTO) 6.7 % (3.0-13.0); NEUTROPHILS % (AUTO) 64.3 % (40.0-77.0); PLATELET COUNT (AUTO) 240 K/uL (130-400); RED BLOOD CELL COUNT(AUTO) 5.05 MIL/uL (4.00-5.50); RED CELL DISTRIBUTION WIDTH 12.9 % (11.0-15.5); WHITE BLOOD COUNT (AUTO) 14.6 K/uL (4.8-10.8)
[2022-10-23] MEDS ORDERED: PANTOPRAZOLE 40 MG/VIAL IVP ONE (04:00)
[2022-10-23] MEDS ORDERED: ONDANSETRON 4MG INJ IVP ONE (04:00)
[2022-10-23] MEDS ORDERED: 0.9%NACL 1000ML 1,000 ML IV ONE (04:00)
[2022-10-23 04:05] LABS: APPEARANCE,URINE CLEAR (CLEAR); BILIRUBIN,URINE NEGATIVE (NEGATIVE); COLOR,URINE COLORLESS (YELLOW); GLUCOSE, URINE (UA) >=1000 mg/dL (NEGATIVE); KETONES,URINE NEGATIVE (NEGATIVE); LEUKOCYTE ESTERASE ,URINE NEGATIVE Leu/uL (NEGATIVE); NITRATE,URINE NEGATIVE (NEGATIVE); OCCULT BLOOD,URINE NEGATIVE (NEGATIVE); PH,URINE 5.5 (5.0-8.0); PROTEIN,URINE 30 mg/dL (NEGATIVE); UROBILINOGEN,URINE 0.2 mg/dL (0.2-1.0)
[2022-10-23 04:06] LABS: RBC,URINE 0-1 /HPF (0-1); WBC,URINE 0-1 /HPF (0-1)
[2022-10-23 04:10] LABS: CARBON DIOXIDE 23 mmol/L (21-32); CHLORIDE 98 mmol/L (101-111); CREATININE 0.9 mg/dL (0.5-1.5); GLOMERULAR FILTR. RATE CALC 83 mL/min (>90); GLUCOSE,RANDOM 339 mg/dL (70-105); POTASSIUM 3.7 mmol/L (3.5-5.1); SODIUM SERUM 134 mmol/L (136-145); UREA NITROGEN, BLOOD 12 mg/dL (7-18)
[2022-10-23 04:14] LABS: ALANINE AMINOTRANSFERASE 34 U/L (12-78); ALBUMIN 3.1 g/dL (3.5-5.0); ASPARTATE AMINOTRANSFERASE 42 U/L (10-37)
[2022-10-23 04:16] LABS: LIPASE < 50 U/L (114-286)
[2022-10-23] MEDS ORDERED: PANT40TA PO (04:58)
[2022-10-23] MEDS ORDERED: ONDA-104 PO (04:58)
[2022-10-23 05:04] VITALS: BP 126/76; PULSE 89; RESP 18
== END 2022-10-23 05:20 | disposition home or self-care (01) ==
LOC: EDH 03:21
DX: R11.2 Nausea with vomiting, unspecified (principal); R10.9 Unspecified abdominal pain; E11.9 Type 2 diabetes mellitus without complications; F17.200 Nicotine dependence, unspecified, uncomplicated; Z79.02 Long term (current) use of antithrombotics/antiplatelets; Z79.4 Long term (current) use of insulin; Z79.82 Long term (current) use of aspirin; Z79.84 Long term (current) use of oral hypoglycemic drugs; Z79.899 Other long term (current) drug therapy; Z90.49 Acquired absence of other specified parts of digestive tract; Z95.5 Presence of coronary angioplasty implant and graft; Z90.710 Acquired absence of both cervix and uterus
CPT/HCPCS: 99284; 96374; 96361; 96375; 80053; 83690; 85025; 81001; 81025; 36415; J7030; J2405; S0164; C9113

== ENCOUNTER 2024-03-05 04:47 | Emergency (ER) | payer BC ==
[~2024-03-05] VITALS: Ht 167.6 cm; Wt 88.5 kg
[~2024-03-05 04:47] MED LIST changes: -CYCL5TAB PO; +CYCL5TAB3 PO; +ONDA-104 PO; +PANT40TA PO
[2024-03-05 04:48] VITALS: TEMP 97.9
--- NOTE | 2024-03-05 04:48 | NUR ---
UA CUP PROVIDED
--- NOTE | 2024-03-05 04:52 | NUR ---
REPORTS WAS SEEN AT [facility] FOR SAME DX WITH CONSTIPATION
[2024-03-05] MEDS: MAG/ALUM/SIMETH 30 ML UDCUP PO ONE (04:59)
[2024-03-05] MEDS: DICYCLOMINE HCL 10 MG/5 ML ML PO ONE (04:59)
[2024-03-05] MEDS: LACTATED RINGERS 1000ML 1,000 ML IV ONE (05:00)
[2024-03-05] MEDS: PANTOPrazole 40 MG/VIAL IVP ONE (05:00)
[2024-03-05 05:15] LABS: BASOPHILS # (AUTO) 0.04 K/uL (0.00-0.20); BASOPHILS % (AUTO) 0.3 % (0.0-5.0); EOSINOPHILS # (AUTO) 0.09 K/uL (0.00-0.70); EOSINOPHILS % (AUTO) 0.7 % (0.0-8.0); HEMATOCRIT 42.7 % (36-48); IMMATURE GRANULOCYTE ABSOLUTE 0.03 K/uL (0-1); LYMPHOCYTES # (AUTO) 4.9 K/uL (1.0-4.8); LYMPHOCYTES % (AUTO) 39.6 % (21.0-51.0); MEAN CORPUSCULAR HEMOGLOBIN 30.5 pg (27.0-33.0); MEAN CORPUSCULAR HGB CONC 34.2 g/dL (32.0-36.0); MEAN CORPUSCULAR VOLUME 89.3 fL (79-99); MONOCYTES # (AUTO) 0.8 K/uL (0.1-1.0); MONOCYTES % (AUTO) 6.3 % (3.0-13.0); NEUTROPHILS # (AUTO) 6.5 K/uL (1.8-7.7); NEUTROPHILS % (AUTO) 52.9 % (40.0-77.0); PLATELET COUNT (AUTO) 233 K/uL (130-400); RED BLOOD CELL COUNT(AUTO) 4.78 MIL/uL (4.00-5.50); RED CELL DISTRIBUTION WIDTH 12.7 % (11.0-15.5); WHITE BLOOD COUNT (AUTO) 12.3 K/uL (4.8-10.8)
--- NOTE | 2024-03-05 05:22 | ERN ---
General Chief Complaint: Abdominal Pain Stated Complaint: LEFT UPPER QUADRANT PAIN Time Seen by MD: 04:48 Source: patient History of Present Illness Initial Comments PATIENT IS A 43-YEAR-OLD FEMALE COMING IN TO BE EVALUATED FOR ABDOMINAL PAIN. PATIENT STATES THAT THE PAIN IS LOCALIZED TO THE LEFT UPPER QUADRANT AREA. PATIENT WAS RECENTLY SEEN AT ANOTHER HOSPITAL AND DIAGNOSED WITH CONSTIPATION STATES SHE HAS NOT FELT ANY BETTER SO DECIDED COME IN TO BE EVALUATED Allergies: Coded Allergies: No Known Allergies (Unverified Allergy, Unknown, 06/04/16) Uncoded Allergies: UNKNOWN ANTIBIOTIC (Allergy, Unknown, 01/08/24) Home Meds Active Scripts Ondansetron HCl (Ondansetron HCl) 4 Mg Tablet, 4 MG PO TIDP PRN for VOMITING, #20 TAB Prov:BRE PÉREZ MD 10/23/22 Pantoprazole Sodium (Protonix) 40 Mg Tablet.dr, 40 MG PO DAILY, #40 TAB Prov:BRE PÉREZ MD 10/23/22 Cyclobenzaprine HCl (Cyclobenzaprine HCl) 5 Mg Tablet, 5 MG PO Q6HPRN PRN for spasm pain for 7 Days, #21 TAB Prov:ENA SANCHEZ NP 10/20/22 Amoxicillin/Potassium Clav (Amox Tr-K Clv 875-125 mg Tab) 1 Each Tablet, 1 EACH PO BID, #10 TAB 0 Refills Prov:REKHA BEAN NEUROPSYCHOLOGIST 07/30/22 Famotidine (Famotidine) 20 Mg Tablet, 20 MG PO DAILY for 30 Days, #30 TAB 0 Refills Prov:MARCOS SNIDER MD 11/24/20 Reported Medications Insulin Glargine,Hum.rec.anlog (Lantus Solostar) 100 Unit/1 Ml Insuln.pen, 50 UNIT SQ HS, SYRINGE 07/29/22 Insulin Lispro (Humalog Kwikpen) 200 Unit/1 Ml Insuln.pen, 30 UNIT SQ TIDAC, SYRINGE 07/29/22 Atorvastatin Calcium (Atorvastatin Calcium) 80 Mg Tablet, 80 MG PO DAILY, TAB 07/29/22 Metoprolol Tartrate (Metoprolol Tartrate) 25 Mg Tablet, 25 MG PO BID, TAB 07/29/22 Prasugrel HCl (Prasugrel HCl) 10 Mg Tablet, 10 MG PO DAILY, TAB 07/29/22 Lisinopril (Lisinopril) 5 Mg Tablet, 5 MG PO DAILY, TAB 07/29/22 Empagliflozin (Jardiance) 25 Mg Tablet, 25 MG PO DAILY, TAB 07/29/22 Aspirin (ASPIRIN 81 MG ECTAB) 81 Mg Ectab, 81 MG PO DAILY, TAB.EC 11/21/20 Past Medical History Past Medical History: Diabetes-Type II, High Cholesterol, Hypertension, OR Medical History Other: HEART STENT Past Surgical History: Hysterectomy, Cholecystectomy, Surgical History Other: HEART STENT; D & C Family History Family History: Negative Social History Social History: Smokers, Lives with family Female( History) History: Not Applicable ROS Dictation CONSTITUTIONAL: NO CHILLS, NO FEVER, NO WEAKNESS, NO DIAPHORESIS, NO MALAISE. HEAD/FACE: NO SIGNS OF TRAUMA. EENT: NO EYE PAIN, NO BLURRED VISION, NO TEARING, NO DOUBLE VISION, NO EAR PAIN, NO EAR DISCHARGE, NO NOSE PAIN, NO NASAL CONGESTION, NO THROAT PAIN, NO THROAT SWELLING, NO MOUTH PAIN. RESPIRATORY: NO COUGH, NO ORTHOPNEA, NO SOB, NO STRIDOR, NO WHEEZING. CARDIOVASCULAR: NO CHEST PAIN, NO EDEMA, NO PALPITATIONS, NO SYNCOPE. GASTROINTESTINAL/ABDOMINAL: ABDOMINAL PAIN, NO CONSTIPATION, NO DIARRHEA, NO NAUSEA, NO VOMITING. GENITOURINARY: NO ABNORMAL DISCHARGE, NO DYSURIA, NO FREQUENT URINATION, NO HEMATURIA. NO COMPLAINTS OF PAIN IN THE GENITALS. MUSCULOSKELETAL: NO BACK PAIN, NO GOUT, NO JOINT PAIN, NO JOINT SWELLING, NO MUSCLE PAIN, NO MUSCLE STIFFNESS, NO NECK PAIN. INTEGUMENTARY: NO CHANGE IN COLOR, NO CHANGE IN HAIR/NAILS, NO DRYNESS, NO LESION, NO LUMPS, NO RASH. NEUROLOGICAL/PSYCH: NO ANXIETY, NOT DEPRESSED, NO EMOTIONAL PROBLEM, NO HEADACHE, NO NUMBNESS, NO PRE-EXISTING DEFICIT, NO HISTORY OF SEIZURES, NO TREMORS, NO WEAKNESS. HEMATOLOGIC/LYMPHATIC: NOT ANEMIC, NO HISTORY OF BLOOD CLOTS, NO APPARENT BLEEDING, NO BRUISING, GLANDS NOT SWOLLEN. ALL SYSTEMS NEGATIVE, EXCEPT NOTED. Physical Exam Physical Exam Dictation VITAL SIGNS: REVIEWED. GENERAL APPEARANCE: ALERT, ORIENTED X3, NO ACUTE DISTRESS, OBESE. HEAD AND FACE: NON-TRAUMATIC. EYES: PERRL, PINK CONJUNCTIVAS, EYELID NO TRAUMA, ANTERIOR CHAMBER CLEAR. EARS: PINNAS INTACT AND NO SIGNS OF TRAUMA OR ERYTHEMA. EAR CANALS CLEAR AND NO DISCHARGE. TMS NO ERYTHEMA. NOSE: NO DISCHARGE, NO BLEEDING. OROPHARYNX: MOUTH NORMAL, TEETH NO CARIES, TONGUE PINK. PHARYNX CLEAR, NO ERYTHEMA. TONSILS NO EXUDATES, NO ABSCESSES NOTED. MUCOUS MEMBRANE MOIST. NECK: SUPPLE, NON-TENDER, NO THYROMEGALY, NO MASSES, NO JVD, NO BRUITS. BREAST: DEFERRED. CHEST: NO TENDERNESS, NO CREPITUS, NO PARADOXICAL MOVEMENT, NO RETRACTIONS. LUNGS: CLEAR, WELL-VENTILATED, SYMMETRIC, NO RALES, NO WHEEZING, NO RHONCHI, NO STRIDOR, GOOD BREATH SOUNDS BILATERALLY. HEART: REGULAR RATE, REGULAR RHYTHM, NO MURMUR, NO GALLOPS. VASCULAR: NO PERIPHERAL EDEMA. ABDOMEN: SOFT, POSITIVE BOWEL SOUNDS, NONDISTENDED, NO GUARDING, LEFT UPPER QUADRANT TENDER, NO REBOUND, NO MASSES NO HEPATOMEGALY, NO SPLENOMEGALY, NO BRICENO'S SIGN, NO HERNIAS. RECTAL: DEFERRED. GENITAL: DEFERRED. NEUROLOGICAL: NORMAL SPEECH, GROSS MOTOR FUNCTION INTACT, GROSS SENSORY FUNCTION INTACT. MUSCULOSKELETAL: NECK NONTENDER, FULL RANGE OF MOTION, BACK NONTENDER, FULL RANGE OF MOTION. EXTREMITIES: NONTENDER, FULL RANGE OF MOTION. SKIN: COLOR PINK, DRY, NO TURGOR, NO RASH, NO LACERATIONS, NO ABRASIONS, NO CONTUSIONS. LYMPHATICS: DEFERRED. Results Laboratory and Microbiology Lab and Micro Result Laboratory Tests Test 03/05/24 04:54 03/05/24 05:06 Urine Color COLORLESS (YELLOW) Urine Appearance CLEAR (CLEAR) Urine pH 5.0 (5.0-8.0) Urine Specific [place] 1.033 (1.001-1.031) Urine Protein 10 mg/dL (NEGATIVE) H Urine Glucose (UA) >=1000 mg/dL (NEGATIVE) H Urine Ketones NEGATIVE mg/dL (NEGATIVE) Urine Occult Blood NEGATIVE (NEGATIVE) Urine Nitrate NEGATIVE (NEGATIVE) Urine Bilirubin NEGATIVE mg/dL (NEGATIVE) Urine Urobilinogen 0.2 mg/dL (0.2-1.0) Urine Leukocyte Esterase NEGATIVE Malorie/uL Urine RBC 0-1 /HPF (0-1) Urine WBC 0-1 /HPF (0-1) Urine Squamous Epithelial Cells RARE /HPF (0-2) Urine Bacteria RARE /HPF (None Seen) Urine HCG, Qualitative NEGATIVE (NEGATIVE) Urine Opiates Screen NEGATIVE (NEGATIVE) Urine Barbiturates Screen NEGATIVE (NEGATIVE) Urine Phencyclidine Screen NEGATIVE (NEGATIVE) Urine Amphetamines Screen NEGATIVE (NEGATIVE) Urine Benzodiazepines Screen NEGATIVE (NEGATIVE) Urine Cocaine Screen NEGATIVE (NEGATIVE) Urine Marijuana (THC) Screen NEGATIVE (NEGATIVE) White Blood Count 12.3 K/uL (4.8-10.8) H Red Blood Count 4.78 MIL/uL (4.00-5.50) Hemoglobin 14.6 g/dL (12.0-16.0) Hematocrit 42.7 % (36-48) Mean Corpuscular Volume 89.3 fL (79-99) Mean Corpuscular Hemoglobin 30.5 pg (27.0-33.0) Mean Corpuscular Hemoglobin Concent 34.2 g/dL (32.0-36.0) Red Cell Distribution Width 12.7 % (11.0-15.5) Platelet Count 233 K/uL (130-400) Mean Platelet Volume 11.4 fL (7.5-10.5) H Immature Granulocyte % (Auto) 0.2 % (0-1) Neutrophils (%) (Auto) 52.9 % (40.0-77.0) Lymphocytes (%) (Auto) 39.6 % (21.0-51.0) Monocytes (%) (Auto) 6.3 % (3.0-13.0) Eosinophils (%) (Auto) 0.7 % (0.0-8.0) Basophils (%) (Auto) 0.3 % (0.0-5.0) Neutrophils # (Auto) 6.5 K/uL (1.8-7.7) Lymphocytes # (Auto) 4.9 K/uL (1.0-4.8) H Monocytes # (Auto) 0.8 K/uL (0.1-1.0) Eosinophils # (Auto) 0.09 K/uL (0.00-0.70) Basophils # (Auto) 0.04 K/uL (0.00-0.20) Absolute Immature Granulocyte (auto 0.03 K/uL (0-1) Nucleated Red Blood Cells 0.0 % (0.0-0.19) Sodium Level 135 mmol/L (136-145) L Potassium Level 3.7 mmol/L (3.5-5.1) Chloride Level 99 mmol/L (101-111) L Carbon Dioxide Level 25 mmol/L (21-32) Blood Urea Nitrogen 12 mg/dL (7-18) Creatinine 0.7 mg/dL (0.5-1.0) Glomerular Filtration Rate Calc 111 mL/min (>90) Random Glucose 308 mg/dL (70-105) H Total Calcium 8.6 mg/dL (8.5-10.1) Total Bilirubin 0.2 mg/dL (0.2-1.0) Aspartate Amino Transf (AST/SGOT) 12 U/L (10-37) Alanine Aminotransferase (ALT/SGPT) 21 U/L (12-78) Alkaline Phosphatase 109 U/L (50-136) Total Creatine Kinase 84 U/L (21-232) # Troponin I High Sensitivity < 4 ng/L (4-50) L Total Protein 7.1 g/dL (6.0-8.3) Albumin 3.0 g/dL (3.5-5.0) L Lipase 25 U/L (16-77) Labs Reviewed?: Yes EKG/XRAY/US/CT/MRI EKG Comment 11/03/2023 TIME 5:04 A.M. VENTRICULAR RATE 76 SINUS RHYTHM NC [address] WAVE ELEVATION OR DEPRESSION Ultrasound Comment Ultrasound superficial abdomen-NAD MDM MDM: DIFFERENTIAL DIAGNOSIS: Muscle strain, lymphangitis, chronic abdominal pain Patient is a 43-year-old female coming in to be evaluated for left upper abdominal pain. Patient states he had a recent CT performed and there was no acute findings except for constipation. Ultrasound was performed laboratory workup negative for acute findings. Patient was advised appropriate follow up with PCP for ongoing evaluation. Anti-inflammatories will be provided to bring some muscular relief. On physical exam the pain is more superficial. ED Course Orders Procedure Category Date Status Time Cbc With Differential LAB 03/05/24 Complete 04:53 Comprehensive LAB 03/05/24 Complete Metabolic Panel 04:53 Troponin I High LAB 03/05/24 Complete Sensitivity 04:53 ,Urine Test LAB 03/05/24 Complete 04:53 Urinalysis Profile LAB 03/05/24 Complete 04:53 12 Lead Ekg Tracing- EKG 03/05/24 Complete Technical 04:53 Lactated Ringers PHA 03/05/24 Complete 1000ml (Lactated 05:00 Mag/Alum/Simeth 30ml PHA 03/05/24 Complete (Maalox Plus 30ml) 05:00 Pantoprazole 40mg Inj PHA 03/05/24 Complete (Protonix 40mg Inj 05:00 Dicyclomine Hcl PHA 03/05/24 Complete (Bentyl 10mg/5ml 05:00 Creatine Kinase, Total LAB 03/05/24 Complete 04:53 Lipase LAB 03/05/24 Complete 04:53 Drug Screen Urine LAB 03/05/24 Complete 04:53 Us Abd Limited/Abd US 03/05/24 Taken Wall 06:27 Current Medications Medications (Trade) Dose Ordered Sig/Alexandra Route PRN Reason Start Time Stop Time Status Last Admin Dose Admin Al Hydroxide/Mg Hydroxide (MAALox PLUS 30ML) 30 ml ONCE ONCE PO 03/05/24 05:00 03/05/24 05:01 DC 03/05/24 04:59 Dicyclomine HCl (Bentyl 10mg/5ml Syrup) 10 mg ONCE ONCE PO 03/05/24 05:00 03/05/24 05:01 DC 03/05/24 04:59 Lactated Ringer's 1,000 ml @ 0 mls/hr ONCE ONCE IV 03/05/24 05:00 03/05/24 05:01 DC 03/05/24 05:00 Pantoprazole Sodium (PROTonix 40MG INJ) 40 mg ONCE ONCE IVP 03/05/24 05:00 03/05/24 05:01 DC 03/05/24 05:00 Vital Signs Date Time Temp Pulse Resp B/P (MAP) Pulse Ox O2 Delivery O2 Flow Rate FiO2 03/05/24 05:37 71 18 120/76 96 Room Air* 0 21 03/05/24 04:48 97.9 81 16 139/92 98 Room Air DX & DISP Disposition: Discharge Departure Impression: Primary Impression: Abdominal pain Additional Impression: Acute dehydration Condition: Stable Scripts Naproxen Sodium (Naproxen Sodium) 550 Mg Tablet 1 TAB PO BID for arthritis for 5 Days, #10 TAB 0 Refills Prov: LIZY KONG MD 03/05/24 Additional Instructions: FOLLOW-UP WITH PRIMARY CARE PROVIDER IN 1 TO 2 DAYS. TAKE MEDICATIONS DIRECTED HERE IN THE EMERGENCY ROOM. OKAY TO CONTINUE HOME MEDICATIONS UNLESS OTHERWISE DISCUSSED DURING YOUR VISIT IN THE EMERGENCY ROOM TODAY. RETURN TO YOUR NEAREST EMERGENCY ROOM IF SYMPTOMS WORSEN OR IF THERE IS NO IMPROVEMENT. CALL 911 IF YOU NEED IMMEDIATE ASSISTANCE. TAKE TYLENOL [id number] NEEDED AND IF NO CONTRAINDICATIONS ARE PRESENT. INCREASE ORAL HYDRATION. A WOUND CULTURE OR URINE CULTURE WAS ORDERED HERE IN THE EMERGENCY ROOM DEPARTMENT PLEASE FOLLOW-UP WITH PRIMARY CARE PROVIDER AND ADVISE THEM TO GET REPEAT PORTS FROM OUR FACILITY. IF YOU HAD ANY RONNIE WRAP/SPLINTS THAT WERE APPLIED HERE, PLEASE DO NOT REMOVE THEM UNTIL YOU SEE YOUR PRIMARY CARE OR SPECIALTY. Referrals: Referrals: FRANCESCA CARRILLO MD (PCP) JAS CISNEROS MD Time of Disposition: 06:54 LIZY KONG MD Mar 05, 2024 05:22
[2024-03-05 05:37] VITALS: BP 120/76; PULSE 71; RESP 18; O2SAT 96
[2024-03-05 05:38] LABS: BILIRUBIN,TOTAL 0.2 mg/dL (0.2-1.0); CREATININE 0.7 mg/dL (0.5-1.0); POTASSIUM 3.7 mmol/L (3.5-5.1); TOTAL PROTEIN, SERUM 7.1 g/dL (6.0-8.3)
--- NOTE | 2024-03-05 05:45 | EKG ---
[facility] Test Date: 2024-03-05 Test Time: 05:04:22 Pat Name: CONSTANCE GALLEGO Department: [facility] Room: Gender: F Automation Tester: [id number] : 1980 Requested By: LIZY KONG Order Number: [id number] Reading MD: Millicent Bruce Measurements Intervals [place] Rate: 76 P: 46 [place]: 152 QRS: -20 QRSD: 110 T: 24 QT: 403 QTc: 454 Interpretive Statements Sinus rhythm Probable left atrial enlargement Compared to ECG 01/08/2024 23:59:44 Myocardial infarct finding no longer present Electronically Signed On 03-07-2024 11:33:18 LEARNING COORDINATOR by Millicent Bruce Please click the below link to view image of tracing.
[2024-03-05 06:01] LABS: HCG,QUALITATIVE URINE NEGATIVE (NEGATIVE)
[2024-03-05 06:02] LABS: APPEARANCE,URINE CLEAR (CLEAR); BILIRUBIN,URINE NEGATIVE (NEGATIVE); COLOR,URINE COLORLESS (YELLOW); GLUCOSE, URINE (UA) >=1000 mg/dL (NEGATIVE); KETONES,URINE NEGATIVE (NEGATIVE); LEUKOCYTE ESTERASE ,URINE NEGATIVE Leu/uL (NEGATIVE); NITRATE,URINE NEGATIVE (NEGATIVE); OCCULT BLOOD,URINE NEGATIVE (NEGATIVE); PROTEIN,URINE 10 mg/dL (NEGATIVE); UROBILINOGEN,URINE 0.2 mg/dL (0.2-1.0)
[2024-03-05 06:03] LABS: ADD UA MICROSCOPIC YES
[2024-03-05 06:10] LABS: AMPHET/METH SCREEN,URINE NEGATIVE (NEGATIVE); BARBITURATE SCREEN, URINE NEGATIVE (NEGATIVE); BENZODIAZEPINES SCREEN,URINE NEGATIVE (NEGATIVE); CANNABINOID SCREEN,URINE NEGATIVE (NEGATIVE); COCAINE SCREEN,URINE NEGATIVE (NEGATIVE); OPIATE SCREEN,URINE NEGATIVE (NEGATIVE); PHENCYCLIDINE SCREEN,URINE NEGATIVE (NEGATIVE)
[2024-03-05 06:22] LABS: BACTERIA,URINE RARE /HPF (None Seen); MUCUS,URINE RARE LPF (None Seen); RBC,URINE 0-1 /HPF (0-1); SQUAMOUS EPITHELIAL CELL,UR RARE /HPF (0-2); WBC,URINE 0-1 /HPF (0-1)
[2024-03-05] MEDS ORDERED: NAPR-1174 PO (06:56)
--- NOTE | 2024-03-05 08:15 | HMCIMG ---
US ABD LIMITED/ABD WALL REASON: luq pain COMPARISON: None TECHNIQUE: Left upper quadrant ultrasound was performed in the area of the patient's pain. FINDINGS: There is normal appearance of the spleen. The left kidney appears normal. There is no mass, stone or hydronephrosis. There are no left upper quadrant fluid collections. Subcutaneous soft tissues of the abdominal wall in the left upper quadrant also appear unremarkable. IMPRESSION: 1. Negative left upper quadrant ultrasound.
== END 2024-03-05 07:02 | disposition home or self-care (01) ==
LOC: EDH 04:47
DX: R10.12 Left upper quadrant pain (principal); E86.0 Dehydration; E11.9 Type 2 diabetes mellitus without complications; E78.00 Pure hypercholesterolemia, unspecified; F17.200 Nicotine dependence, unspecified, uncomplicated; I10 Essential (primary) hypertension; M19.90 Unspecified osteoarthritis, unspecified site; Z79.02 Long term (current) use of antithrombotics/antiplatelets; Z79.4 Long term (current) use of insulin; Z79.82 Long term (current) use of aspirin; Z79.84 Long term (current) use of oral hypoglycemic drugs; Z79.899 Other long term (current) drug therapy; Z88.1 Allergy status to other antibiotic agents; Z90.49 Acquired absence of other specified parts of digestive tract; Z90.710 Acquired absence of both cervix and uterus; Z95.5 Presence of coronary angioplasty implant and graft
CPT/HCPCS: 99284; 96374; 76705; 82550; 84484; 80053; 80305; 83690; 85025; 81025; 36415; 93005; 81001; J7120; J2470